=== PATIENT | female | born 1980 | race Hispanic/Latino ===

== ENCOUNTER → 2017-12-29 | Outpatient (REF) | payer OTHER | LOC: M SFHCLERA 10:29 | DX: J02.9 Acute pharyngitis, unspecified (principal) ==

== ENCOUNTER → 2018-08-22 | Outpatient (CLI) | payer OTHER ==
--- NOTE | 2018-08-22 10:36 | REP ---
Right foot: Four views. History: Pain first three digits. Findings: Four views of the right foot show overall normal mineralization. There is an os naviculare E noted incidentally. Bones, joints, and soft tissues are radiographically unremarkable. Impression: Negative radiographs of the right foot. Electronically Signed by Aaron Recinos MD 08/22/2018 10:27 A
== END ==
LOC: M LRY 10:14
PROVIDERS: ATTEND Nurse Practitioner Family
DX: S99.921A Unspecified injury of right foot, initial encounter (principal); Q66.81 Congenital vertical talus deformity, right foot; X58.XXXA Exposure to other specified factors, initial encounter; Y92.89 Other specified places as the place of occurrence of the external cause